=== PATIENT | female | born 1950 | race Two or more races ===

== ENCOUNTER 2021-02-16 09:53 | Outpatient (CLI) | payer OTHER | END 2021-02-16 09:58 | disposition home or self-care (01) | LOC: RAD 09:53 → NUCLEAR 03-21 13:15 | PROVIDERS: ATTEND Orthopaedic Surgery | DX: I10 Essential (primary) hypertension (principal); M17.11 Unilateral primary osteoarthritis, right knee; Z96.652 Presence of left artificial knee joint; R93.6 Abnormal findings on diagnostic imaging of limbs; Z76.89 Persons encountering health services in other specified circumstances ==

== ENCOUNTER 2021-03-21 12:50 | Outpatient (CLI) | payer OTHER | END 2021-03-21 12:52 | disposition home or self-care (01) | LOC: NUCLEAR 12:50 | PROVIDERS: ATTEND Orthopaedic Surgery | DX: M81.0 Age-related osteoporosis without current pathological fracture (principal) ==

== ENCOUNTER → 2021-06-20 07:15 | Outpatient (CLI) | payer OTHER | END | disposition home or self-care (01) | LOC: LAB 07:15 | PROVIDERS: ATTEND Orthopaedic Surgery | DX: D64.89 Other specified anemias (principal); E88.89 Other specified metabolic disorders; D68.8 Other specified coagulation defects; N39.0 Urinary tract infection, site not specified; Z22.322 Carrier or suspected carrier of Methicillin resistant Staphylococcus aureus; I49.8 Other specified cardiac arrhythmias; I10 Essential (primary) hypertension; Z76.89 Persons encountering health services in other specified circumstances ==

== ENCOUNTER 2021-12-01 07:50 | Outpatient (CLI) | payer OTHER ==
[~2021-12-01] VITALS: Ht 160 cm; Wt 113.4 kg
== END 2021-12-01 08:05 | disposition home or self-care (01) ==
LOC: LAB 07:50
PROVIDERS: ATTEND Orthopaedic Surgery
DX: D64.9 Anemia, unspecified (principal); E88.9 Metabolic disorder, unspecified; D68.8 Other specified coagulation defects; N39.0 Urinary tract infection, site not specified; A49.02 Methicillin resistant Staphylococcus aureus infection, unspecified site; E11.9 Type 2 diabetes mellitus without complications; Z76.89 Persons encountering health services in other specified circumstances; I10 Essential (primary) hypertension

== ENCOUNTER 2021-12-12 10:15 | Inpatient (IN) | payer OTHER ==
[~2021-12-12] VITALS: Ht 160 cm; Wt 113.4 kg
[2021-12-12] MEDS ORDERED: HYZAAR 100-12.1 EACH PO (12:37)
[2021-12-12] MEDS ORDERED: PLAVIX75 MG PO (12:37)
[2021-12-12] MEDS ORDERED: SYNTHROID88 MCG PO (12:37)
[2021-12-12] MEDS ORDERED: LIPITOR40 MG PO (12:38)
[2021-12-12] MEDS ORDERED: NORVASC5 MG PO (12:38)
[2021-12-12] MEDS ORDERED: TENORMIN100 M1 PO (12:38)
[2021-12-12] MEDS ORDERED: HUMALOG MI100 UNIT/2 (12:39)
[2021-12-12] MEDS ORDERED: GABAPENTIN400 MG PO (12:39)
[2021-12-13] MEDS ORDERED: CELECOXIB200 MG (13:16)
[2021-12-13] MEDS ORDERED: XARELTO10 M1 (13:16)
== END 2021-12-15 12:17 | disposition home or self-care (01) | DRG 470 ==
LOC: O/R 12-13 06:00 → SURH 12-13 10:15 → SURG 12-13 14:46
PROVIDERS: ADMIT Orthopaedic Surgery; ATTEND Orthopaedic Surgery
PROC: 0SRC0J9 Replacement of Right Knee Joint with Synthetic Substitute, Cemented, Open Approach (ICD-10-PCS; principal; 2021-12-13 12:00)
DX: M17.11 Unilateral primary osteoarthritis, right knee (principal); E66.8 Other obesity; I10 Essential (primary) hypertension; E03.8 Other specified hypothyroidism; Z20.822 Contact with and (suspected) exposure to COVID-19; I25.10 Atherosclerotic heart disease of native coronary artery without angina pectoris; E13.9 Other specified diabetes mellitus without complications